=== PATIENT | male | born 2000 | race Caucasian/White ===

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

== ENCOUNTER 2019-04-06 14:44 | Emergency (ER) | payer OTHER ==
[2019-04-06 15:03] VITALS: TEMP 98.5; BMI 39.1
[2019-04-06] MEDS ORDERED: ONDANSETRON 4 MG/2 ML VIAL IVPUSH ONE (15:32)
[2019-04-06] MEDS ORDERED: SODIUM CHLORIDE 1,000 ML IV STA (15:33)
[2019-04-06] MEDS ORDERED: KETOROLAC TROMETHAMINE 30 MG/1 ML VIAL IVPUSH ONE (15:33)
[2019-04-06] MEDS ORDERED: KETOROLAC TROMETHAMINE 30 MG/1 ML VIAL ONE (15:38)
--- NOTE | 2019-04-06 15:38 | PDOC ---
History of Present Illness - General Chief Complaint: Vomiting/Diarrhea Stated Complaint: VOMITING Time Seen by Provider: 04/06/19 15:18 History Source: Patient, Parent(s) - History of Present Illness Timing/Duration: reports: other (last night) Abdominal Pain Onset Location: reports: generalized abdomen Past History - Past Medical History Allergies/Adverse Reactions: Allergies Allergy/AdvReac Type Severity Reaction Status Date / Time No Known Allergies Allergy Verified 04/06/19 15:00 Home Medications: Ambulatory Orders NK [No Known Home Medication] 07/31/17 COPD: No - Surgical History Abdominal Surgery: Yes Appendectomy: Yes - Immunization History Immunization Up to Date: Yes - Psycho Social/Smoking Cessation Hx Smoking Status: No Smoking History: Never smoked Have you smoked in the past 12 months: No Number of Cigarettes Smoked Daily: 0 Information on smoking cessation initiated: No Hx Alcohol Use: No Drug/Substance Use Hx: No Substance Use Type: None Review of Systems - Review of Systems Constitutional: Yes: Malaise. No: Chills, Fever ABD/GI: Yes: Diarrhea, Nausea, Vomiting, Abdominal cramping. No: Rectal Bleeding, Tarry Stools : No: Dysuria *Physical Exam - Vital Signs Last Vital Signs Temp Pulse Resp BP Pulse Ox 98.5 F 116 H 20 133/83 98 04/06/19 15:01 04/06/19 15:01 04/06/19 15:01 04/06/19 15:01 04/06/19 15:01 - Physical Exam General Appearance: Yes: Appropriately Dressed HEENT: positive: Normal Voice Neck: positive: Supple Respiratory/Chest: negative: Respiratory Distress Gastrointestinal/Abdominal: positive: Normal Bowel Sounds, Soft. negative: Tender, Distended, Guarding Musculoskeletal: negative: CVA Tenderness Integumentary: positive: Dry, Warm Neurologic: positive: Fully Oriented, Alert, Normal Mood/Affect Medical Decision Making - Medical Decision Making 04/06/19 15:34 19-year-old male, s/p appy remotely, brought in by mother for nausea, vomiting, diarrhea and abdominal pain. Patient states symptoms started shortly after eating spaghetti that he cooked last night. Has had about 2 episodes of non- bloody vomitus and numerous episodes of non-bloody watery diarrhea. At some point develop abdominal cramping. No fever or chills. Mother states she also had some "queasiness" after eating spaghetti but that her symptoms has since resolved. Pt now complaining of weakness see exam N/V/D Possibly 2/2 ingestion, s/p remote appy Tachy and krista mildly lethargic w/ no sig ttp on abd exam -IVF -zofran -pain control -labs -reassess 04/06/19 16:00 Signed out to RAINA Belle pending w/u/reassessment Discharge - Discharge Information Problems reviewed: Yes Clinical Impression/Diagnosis: Nausea & vomiting Qualifiers: Vomiting type: unspecified Vomiting Intractability: non-intractable Qualified Code(s): R11.2 - Nausea with vomiting, unspecified Diarrhea Qualifiers: Diarrhea type: unspecified type Qualified Code(s): R19.7 - Diarrhea, unspecified - Follow up/Referral Referrals: Sherry Martinez MD [Primary Care Provider] - - Patient Discharge Instructions - Post Discharge Activity
[2019-04-06] MEDS ORDERED: ONDANSETRON 4 MG/2 ML VIAL ONE (15:39)
[2019-04-06 16:18] LABS: BASO % 0.1 % (0-2.0); EOS % 0.5 % (0-4.5); HEMATOCRIT 46.6 % (35.4-49); HEMOGLOBIN 15.5 GM/dL (11.7-16.9); MCH 27.2 pg (25.7-33.7); MCHC 33.2 g/dl (32.0-35.9); MEAN PLT VOLUME 8.4 fl (7.5-11.1); NEUT % 85.4 % (42.8-82.8); PLATELET COUNT 348 K/MM3 (134-434); RBC 5.68 M/mm3 (4.00-5.60); RDW 13.7 % (11.9-15.9); WHITE BLOOD COUNT 14.4 K/mm3 (4.0-10.0)
[2019-04-06 16:40] LABS: BILIRUBIN,TOTAL 0.6 mg/dL (0.2-1); BLOOD UREA NITROGEN 15.4 mg/dL (7-18); CALCIUM 9.2 mg/dL (8.5-10.1); CREATININE 0.9 mg/dL (0.55-1.3); POTASSIUM 4.5 mmol/L (3.5-5.1); TOT PROT 8.2 g/dl (6.4-8.2)
--- NOTE | 2019-04-06 17:08 | PDOC ---
*Physical Exam - Vital Signs Last Vital Signs Temp Pulse Resp BP Pulse Ox 98.5 F 116 H 20 133/83 99 04/06/19 15:01 04/06/19 15:01 04/06/19 15:01 04/06/19 15:01 04/06/19 16:00 - Physical Exam General Appearance: Yes: Nourished, Appropriately Dressed. No: Apparent Distress HEENT: positive: Other (moist mucosa) Neck: negative: Decreased range of motion Respiratory/Chest: positive: Lungs Clear, Normal Breath Sounds. negative: Respiratory Distress, Accessory Muscle Use Cardiovascular: positive: Regular Rhythm, Regular Rate, S1, S2 Gastrointestinal/Abdominal: positive: Normal Bowel Sounds, Soft. negative: Tender, Guarding, Rebound, Tenderness Musculoskeletal: positive: Normal Inspection. negative: Decreased Range of Motion Extremity: positive: Normal Capillary Refill, Normal Inspection, Normal Range of Motion Integumentary: positive: Normal Color, Dry, Warm Neurologic: positive: Fully Oriented, Alert, Normal Mood/Affect ED Treatment Course - LABORATORY CBC & Chemistry Diagram: 04/06/19 16:10 04/06/19 16:10 - ADDITIONAL ORDERS Additional order review: Laboratory Results 04/06/19 16:10 Sodium 138 Potassium 4.5 Chloride 103 Carbon Dioxide 29 Anion Gap 6 L BUN 15.4 Creatinine 0.9 Est GFR (CKD-EPI)AfAm 142.00 Est GFR (CKD-EPI)NonAf 122.52 Random Glucose 97 Calcium 9.2 Total Bilirubin 0.6 AST 21 ALT 43 Alkaline Phosphatase 79 Total Protein 8.2 Albumin 4.0 Lipase 103 04/06/19 16:10 RBC 5.68 H MCV 82.0 MCHC 33.2 RDW 13.7 MPV 8.4 Neutrophils % 85.4 H D Lymphocytes % 6.0 L D Monocytes % 8.0 Eosinophils % 0.5 Basophils % 0.1 - Medications Given in the ED: ED Medications Discontinued Medications Generic Name Dose Route Start Last Admin Trade Name Freq PRN Reason Stop Dose Admin Sodium Chloride 1,000 mls @ 1,000 mls/hr 04/06/19 15:33 04/06/19 16:09 Normal Saline - IV 04/06/19 16:32 1,000 mls/hr ASDIR STA Administration Ketorolac Tromethamine 30 mg 04/06/19 15:33 01/12/20 16:09 Toradol Injection - IVPUSH 04/06/19 15:34 30 mg ONCE ONE Administration Ondansetron HCl 4 mg 04/06/19 15:32 04/06/19 16:00 Zofran Injection IVPUSH 04/06/19 15:33 4 mg ONCE ONE Administration Medical Decision Making - Medical Decision Making 04/06/19 17:07 The patient was endorsed to me by RAINA Flores for further evaluation of nausea, vomiting and diarrhea since eating Post[place] yesterday. His mother had similar symptoms but hers have resolved. He believes he is slightly dehydrated. The patient has an elevated WBC count which is consistent with his nausea, vomiting and diarrhea symptoms and slight dehydration. He is stating that he feels much better and is currently trialing a p.o. challenge. If he is able to tolerate fluids we will discharge the patient and have him follow-up with his primary doctor within 1 to 2 days for repeat evaluation. He has been educated on rehydration and diluting Gatorade by half with water and eating a bland diet for the next several days. 04/06/19 17:27 Patient is doing well and he has tolerated fluids in the ED. I have reiterated a brat diet and drinking plenty of fluids. He will follow-up with his primary care physician within 1 to 2 days for repeat evaluation. Discharge - Discharge Information Problems reviewed: Yes Clinical Impression/Diagnosis: Gastroenteritis Nausea & vomiting Qualifiers: Vomiting type: unspecified Vomiting Intractability: non-intractable Qualified Code(s): R11.2 - Nausea with vomiting, unspecified Diarrhea Qualifiers: Diarrhea type: unspecified type Qualified Code(s): R19.7 - Diarrhea, unspecified Condition: Stable Disposition: HOME - Follow up/Referral Referrals: Sherry Martinez MD [Primary Care Provider] - - Patient Discharge Instructions - Post Discharge Activity Work/Back to School Note: Back to Work
[2019-04-06 18:07] VITALS: BP 122/70; PULSE 88
== END 2019-04-06 18:00 | disposition home or self-care (01) ==
LOC: JER 14:44
PROC: 3E033GC Introduction of Other Therapeutic Substance into Peripheral Vein, Percutaneous Approach (ICD-10-PCS; principal; 2019-04-06)
PROC: 3E0333Z Introduction of Anti-inflammatory into Peripheral Vein, Percutaneous Approach (ICD-10-PCS; 2019-04-06)
DX: K52.9 Noninfective gastroenteritis and colitis, unspecified (principal)
CPT/HCPCS: 36415; 80053; 83690; 85025; 96374; 96375; 99283-25; J7030

== ENCOUNTER 2023-03-15 16:28 | Emergency (ER) | payer OTHER ==
[2023-03-15 17:09] VITALS: BP 116/73; PULSE 88; RESP 18; TEMP 98.9; BMI 37.5
[2023-03-15 18:21] LABS: THROAT:GRP A STREP NOT DETECTED (NOTDETECTED)
== END 2023-03-15 19:16 | disposition home or self-care (01) ==
LOC: JER 16:28 → JERFT 16:28
DX: R50.9 Fever, unspecified (principal); J02.9 Acute pharyngitis, unspecified; R49.0 Dysphonia; R09.81 Nasal congestion; B34.9 Viral infection, unspecified; Z20.822 Contact with and (suspected) exposure to COVID-19
CPT/HCPCS: 0241U-QW; 87651; 99283-25

== ENCOUNTER 2023-10-15 15:10 | Emergency (ER) | payer OTHER ==
[2023-10-15 15:14] VITALS: BP 117/77; PULSE 99; RESP 18; TEMP 98.6; BMI 40.7
== END 2023-10-15 17:58 | disposition home or self-care (01) ==
LOC: JERFT 15:10
DX: R05.1 Acute cough (principal); J40 Bronchitis, not specified as acute or chronic; Z20.822 Contact with and (suspected) exposure to COVID-19
CPT/HCPCS: 0241U-QW; 71046-TC-FY; 99284-25